=== PATIENT | female | born 1995 | race Caucasian/White ===

== ENCOUNTER 2020-07-19 22:15 | Emergency (ER) | payer OTHER ==
[~2020-07-19] VITALS: Ht 162.6 cm; Wt 50.8 kg
[2020-07-19 22:52] LABS: ABSOLUTE NEUTROPHILS 2.3 thou/uL (1.4-8.2); HEMOGLOBIN 13.4 gm/dL (12.0-15.0); WBC 5.3 thou/uL (4.0-11.0)
[2020-07-19 22:54] LABS: BASOPHILS 0.6 % (0.0-2.0); EOSINOPHILS 11.4 % (0.0-3.0); HEMATOCRIT 39.8 % (37.0-47.0); MCH 29.5 pg (26.0-34.0); MCHC 33.8 g/dL (28.0-37.0); MCV 87.4 fL (80.0-100.0); MONOCYTES 6.5 % (1.0-8.0); PLATELET COUNT 158 thou/uL (150-400); POLYS 43.5 % (36.0-66.0); RBC 4.56 mil/uL (4.20-5.00); RDW 13.1 % (10.5-14.5)
[2020-07-19] MEDS ORDERED: ALBUTEROL2.5 MG/0.1 INH (22:58)
[2020-07-19 23:02] LABS: ANION GAP 8 mmol/L (7-16); BUN 13 mg/dL (7-18); CALCIUM 9.1 mg/dL (8.5-10.1); CHLORIDE 105 mmol/L (98-107); CO2 29 mmol/L (21-32); CREATININE 0.5 mg/dL (0.6-1.0); GLUCOSE 87 mg/dL (74-106); POTASSIUM 3.7 mmol/L (3.5-5.1); SODIUM 142 mmol/L (136-145)
[2020-07-19 23:13] LABS: ALBUMIN 4.3 g/dL (3.4-5.0); LIPASE 94 U/L (73-393); SGOT 15 U/L (15-37); SGPT 18 U/L (14-59); TOTAL BILIRUBIN 0.3 mg/dL (0.2-1.0); TROPONIN-I <0.06 ng/mL (<0.06)
[2020-07-20] MEDS ORDERED: NEXIUM40 MG PO (00:21)
[2020-07-20 00:43] VITALS: BP 100/62
--- NOTE | 2020-07-20 06:45 | EKG ---
[place] [address] [facility] [place] [address] ELECTROCARDIOGRAM REPORT Name: BECK WIN Room #: DEP [id number] Admission: 07/19/20 Attend Phys: Discharge: 07/20/20 Date of : [birth year] Report #: [id number] [facility] ED Test Date: 2020-07-19 Test Time: 22:33:24 Pat Name: BECK WIN Department: Room: Gender: F Accounting Analyst: STEFANI : 1995 Requested By: Neto Reyna Order Number: [id number] MD: Sylvester Espino Measurements Intervals [place] Rate: 79 P: 64 AL: 132 QRS: 60 QRSD: 76 T: 55 QT: 384 QTc: 441 Interpretive Statements Sinus rhythm Baseline wander in lead(s) V2 No previous ECG available for comparison Electronically Signed On 07-20-2020 6:45:29 CDT by Sylvester Espino [email or web address] <ELECTRONICALLY SIGNED> By: Sylvester Espino MD, [facility] 07/20/20 [id number] Sylvetser Espino MD, FACC /EPI
== END 2020-07-20 00:51 | disposition home or self-care (01) ==
LOC: ER 22:15
PROVIDERS: Emergency Medicine
DX: R07.89 Other chest pain (principal); J45.909 Unspecified asthma, uncomplicated